=== PATIENT | female | born 1970 | race Caucasian/White ===

== ENCOUNTER 2019-11-13 13:49 | Emergency (ER) | payer OTHER, SELFPAY ==
[2019-11-13] MEDS ORDERED: HYDROCODONE/APAP 10/325 TAB ONE (14:59)
--- NOTE | 2019-11-13 15:12 | ER ---
Nurse's Notes [facility] Name: Kathleen Baldwin Age: 49 yrs Sex: Female : 1970 Arrival Date: 11/13/2019 Time: 13:56 Bed 3 Private MD: Diagnosis: Nondisplaced comminuted fracture of shaft of ulna, left arm-proximal;Other dislocation of left radial head Presentation: 11/12 14:22 Chief complaint: Patient states: Foot got caught on something while trying to get out jl7 of the car and I fell, reports dislocated left elbow. Coronavirus screen: Proceed with normal triage. Patient denies a cough. Patient denies shortness of breath or difficulty breathing. Patient denies measured and/or subjective temperature greater than 100.4F prior to today's visit. Patient denies travel on a cruise ship or to a country the [facility] currently lists as an affected area. Patient denies contact with known and/or suspected case of COVID-19. Ebola Screen: No symptoms or risks identified at this time. Initial Sepsis Screen: Does the patient meet any 2 criteria? No. Patient's initial sepsis screen is negative. Does the patient have a suspected source of infection? No. Patient's initial sepsis screen is negative. Risk Assessment: Do you want to hurt yourself or someone else? Patient reports no desire to harm self or others. Onset of symptoms was November 13, 2019. Care prior to arrival: None. 14:22 Method Of Arrival: Ambulatory jl7 14:22 Acuity: KYAW 4 jl7 15:30 Mechanism of Injury: Fall from standing position. Trauma event details: Injury occurred bp in the [facility], Injury occurred: at home. Injury occurred: November 13, 2019 Injury occurred at: 13:00. 15:30 Care prior to arrival: None. bp Triage Assessment: 14:25 General: Appears in no apparent distress. uncomfortable, Behavior is calm, cooperative, jl7 appropriate for age. Pain: Complains of pain in left elbow Pain currently is 10 out of 10 on a pain scale. 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 - Social history:: Smoking status: Patient reports the use of cigarette tobacco products, 3-4 cigarettes/day. - Immunization history: Last tetanus immunization: unknown. Screenin:30 Abuse screen: Denies threats or abuse. Denies injuries from another. Nutritional bp screening: No deficits noted. Tuberculosis screening: No symptoms or risk factors identified. 16:21 Fall Risk Fall in past 12 months (25 points). No secondary diagnosis (0 pts). IV access bp (20 points). Ambulatory Aid- None/Bed Rest/Nurse Assist (0 pts). Gait- Normal/Bed Rest/Wheelchair (0 pts) Mental Status- Oriented to own ability (0 pts). Total River Fall Scale indicates High Risk Score (45 or more points). Fall prevention measures have been instituted. Side Rails Up X 2 Placed Close to Nursing Station Frequent Obs/Assessments Occuring As available patient and family educated on Fall Prevention Program and Strategies. Primary Survey: 15:30 NO uncontrolled hemorrhage observed. A: The patient is alert. Airway: patent. bp Breathing/Chest: Respiratory pattern: regular, Respiratory effort: spontaneous, Breath sounds: clear, bilaterally. Circulation: Skin color: pink, Skin temperature: warm, dry. Disability Alert. Exposure/Environment: All clothing and personal items were removed. Forensic evidence collection is not deemed to be indicated at this time. Items placed in patient belonging bag. There is no evidence of uncontrolled external bleeding. Obvious injury(ies) are noted at this time: LEFT ELBOW DEFORMITY. 16:21 Reassessment Breathing/Chest Respiratory pattern Regular Respiratory effort Spontaneous bp Unlabored. Secondary Survey: 15:30 Musculoskeletal: Bony deformity noted of left elbow. bp Assessment: 15:30 General: Appears distressed, uncomfortable, Behavior is cooperative, appropriate for bp age, anxious. Pain: Complains of pain in left elbow. Neuro: Level of Consciousness is awake, alert, obeys commands, Oriented to person, place, time, situation, Appropriate for age. EENT: No deficits noted. Cardiovascular: No deficits noted. Respiratory: No deficits noted. GI: No signs and/or symptoms were reported involving the gastrointestinal system. : No signs and/or symptoms were reported regarding the genitourinary system. Derm: No deficits noted. Musculoskeletal: Bony deformity noted of left elbow. Injury Description: Deformity sustained to left elbow. 16:00 Reassessment: REPORT TO ENEDIAN CHICAS AT [facility]. TRANSPORT PENDING. bp 16:20 Reassessment: [facility] AT B/S FOR TRANSFER TO [facility]. bp Vital Signs: 14:22 BP 145 / 84; Pulse 62; Resp 20; Temp 97; Pulse Ox 99% ; Weight 73.94 kg; Height 5 ft. 6 jl7 in. (167.64 cm); Pain 10/10; 16:00 BP 137 / 79; Pulse 71; Resp 17; Temp 97; Pulse Ox 99% ; bp 14:22 Body Mass Index 26.31 (73.94 kg, 167.64 cm) jl7 [place] Coma Score: 15:30 Eye Response: spontaneous(4). Verbal Response: oriented(5). Motor Response: obeys bp commands(6). Total: 15. Trauma Score (Adult): 15:30 Eye Response: spontaneous(1); Verbal Response: oriented(1); Motor Response: obeys bp commands(2); Systolic BP: > 89 mm Hg(4); Respiratory Rate: 10 to 29 per min(4); Deepika Score: 15; Trauma Score: 12 ED Course: 13:56 Patient arrived in ED. mr 14:25 Triage completed. jl7 14:25 Arm band placed on right wrist. jl7 14:52 Eva Arrington FNP-C is [facility]. snw 14:52 Nikita Peters MD is Attending Physician. snw 15:05 Elbow Left 3 View XRAY In Process Unspecified. EDMS 15:10 Malvin Magallanes MD is Referral Physician. snw 15:30 Patient has correct armband on for positive identification. Bed in low position. Call bp light in reach. Side rails up X2. 15:30 Patient maintains SpO2 saturation greater than 95% on room air. Thermoregulation: warm bp blanket given to patient. 15:34 Ruben Siu, RN is Primary Nurse. bp 15:50 Inserted saline lock: 20 gauge in right hand, using aseptic technique. Blood collected. bp 16:19 No provider procedures requiring assistance completed. Patient admitted, IV remains in bp place. 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 Lot #: [id number]. } Route: IM; Site: right deltoid; 16:19 Follow up: Response: No adverse reaction bp 16:00 Drug: fentaNYL (PF) 50 mcg Route: IVP; Site: right hand; bp 16:19 Follow up: Response: Pain is decreased bp 16:00 Drug: NS 0.9% 1000 ml Route: IV; Rate: 125 ml/hr; Site: right hand; bp 16:11 Follow up: IV Status: Infusion continued upon transfer bp 16:18 Drug: fentaNYL (PF) 50 mcg Route: IVP; Site: right hand; bp 16:19 Follow up: Response: Pain is decreased bp Intake: 15:30 PO: 0ml; Total: 0ml. bp Output: 15:30 Urine: 0ml; Total: 0ml. bp Outcome: 15:12 Discharge ordered by MD. snw 15:37 ER care complete, transfer ordered by MD. snw 16:19 Transferred by ground EMS to [facility], Transfer form completed. bp 16:19 Condition: stable 16:19 Instructed on the need for transfer. 16:22 Patient's length of stay was not longer than 2 hours. bp 16:23 Patient left the ED. bp Signatures: Dispatcher [employer] EDMS Eva Arrington, MICHELLEC QUALITY MANAGER-Jhoan Vicky DoverSalome, RN RN jl7 Ruben Siu, RN RN bp Corrections: (The following items were deleted from the chart) 16:05 16:02 Inserted saline lock: 20 gauge in right hand, using aseptic technique. Blood bp collected. bp
--- NOTE | 2019-11-13 15:12 | EDPHYS ---
Physician Documentation [facility] Name: Kathleen Baldwin Age: 49 yrs Sex: Female : 1970 Arrival Date: 11/13/2019 Time: 13:56 Bed 3 Private MD: ED Physician Nikita Peters HPI: 11/12 15:31 This 49 yrs old Female presents to ER via Ambulatory with complaints of Fall snw Injury, Elbow Injury. 15:31 Details of fall: The patient fell from an upright position, getting out of car. Onset: snw The symptoms/episode began/occurred suddenly, just prior to arrival. Associated injuries: The patient sustained left elbow, decreased range of motion, obvious fracture, painful injury. Severity of symptoms: At their worst the symptoms were moderate, severe, in the emergency department the symptoms are unchanged. The patient has not experienced similar symptoms in the past. The patient has not recently seen a physician. pt with + sensation and pulses to left upper ext. 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 - Social history:: Smoking status: Patient reports the use of cigarette tobacco products, 3-4 cigarettes/day. - Immunization history: Last tetanus immunization: unknown. ROS: 15:33 Constitutional: Negative for fever, chills, and weight loss, Eyes: Negative for injury, snw pain, redness, and discharge, ENT: Negative for injury, pain, and discharge, Neck: Negative for injury, pain, and swelling, Cardiovascular: Negative for chest pain, palpitations, and edema, Respiratory: Negative for shortness of breath, cough, wheezing, and pleuritic chest pain, Abdomen/GI: Negative for abdominal pain, nausea, vomiting, diarrhea, and constipation, Back: Negative for injury and pain, : Negative for injury, bleeding, discharge, and swelling, Skin: Negative for injury, rash, and discoloration, Neuro: Negative for headache, weakness, numbness, tingling, and seizure, Psych: Negative for depression, anxiety, suicide ideation, homicidal ideation, and hallucinations. 15:33 MS/extremity: Positive for injury or acute deformity, decreased range of motion, pain, swelling, tenderness, of the left elbow. Exam: 15:33 Constitutional: This is a well developed, well nourished patient who is awake, alert, snw and in no acute distress. Head/Face: Normocephalic, atraumatic. Eyes: Pupils equal round and reactive to light, extra-ocular motions intact. Lids and lashes normal. Conjunctiva and sclera are non-icteric and not injected. Cornea within normal limits. Periorbital areas with no swelling, redness, or edema. ENT: Nares patent. No nasal discharge, no septal abnormalities noted. Tympanic membranes are normal and external auditory canals are clear. Oropharynx with no redness, swelling, or masses, exudates, or evidence of obstruction, uvula midline. Mucous membranes moist. Neck: Trachea midline, no thyromegaly or masses palpated, and no cervical lymphadenopathy. Supple, full range of motion without nuchal rigidity, or vertebral point tenderness. No Meningismus. Chest/axilla: Normal chest wall appearance and motion. Nontender with no deformity. No lesions are appreciated. Cardiovascular: Regular rate and rhythm with a normal S1 and S2. No gallops, murmurs, or rubs. Normal PMI, no JVD. No pulse deficits. Respiratory: Lungs have equal breath sounds bilaterally, clear to auscultation and percussion. No rales, rhonchi or wheezes noted. No increased work of breathing, no retractions or nasal flaring. Abdomen/GI: Soft, non-tender, with normal bowel sounds. No distension or tympany. No guarding or rebound. No evidence of tenderness throughout. Back: No spinal tenderness. No costovertebral tenderness. Full range of motion. MS/ Extremity: Pulses equal, no cyanosis. Neurovascular intact. Full, normal range of motion. except to left upper extremity. + edema, decreased ROM, tenderness, + sensation, NPO Neuro: Awake and alert, GCS 15, oriented to person, place, time, and situation. Cranial nerves II-XII grossly intact. Motor strength 5/5 in all extremities. Sensory grossly intact. Cerebellar exam normal. Normal gait. Psych: Awake, alert, with orientation to person, place and time. Behavior, mood, and affect are within normal limits. Vital Signs: 14:22 BP 145 / 84; Pulse 62; Resp 20; Temp 97; Pulse Ox 99% ; Weight 73.94 kg; Height 5 ft. 6 jl7 in. (167.64 cm); Pain 10/10; 16:00 BP 137 / 79; Pulse 71; Resp 17; Temp 97; Pulse Ox 99% ; bp 14:22 Body Mass Index 26.31 (73.94 kg, 167.64 cm) jl7 Deepika Coma Score: 15:30 Eye Response: spontaneous(4). Verbal Response: oriented(5). Motor Response: obeys bp commands(6). Total: 15. Trauma Score (Adult): 15:30 Eye Response: spontaneous(1); Verbal Response: oriented(1); Motor Response: obeys bp commands(2); Systolic BP: > 89 mm Hg(4); Respiratory Rate: 10 to 29 per min(4); Garner Score: 15; Trauma Score: 12 MDM: 14:53 Patient medically screened. snw 15:34 Data reviewed: vital signs, nurses notes. Data interpreted: Pulse oximetry: on room air snw is 99 %. Interpretation: normal. Counseling: I had a detailed discussion with the patient and/or guardian regarding: the historical points, exam findings, and any diagnostic results supporting the discharge/admit diagnosis, radiology results, the need to transfer to another facility, for higher level of care, [facility] does not immediately have the required specialist. Physician consultation: Malvin Magallanes MD was called at 15:00, was contacted at 15:20, regarding consult, patient's condition, need to evaluate the patient as soon as possible, after a discussion of the case, a recommendation for transfer for higher level of care is made. 11/12 15:30 Order name: CBC with Diff snw 11/12 15:30 Order name: TS snw 11/12 14:38 Order name: Elbow Left 3 View XRAY; Complete Time: 15:17 snw 11/12 15:30 Order name: Chem 7 snw 11/12 15:09 Order name: Sling; Complete Time: 15:09 snw 11/12 15:29 Order name: Misc. Order: attempt transfer to Trauma per Dr. 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 Lot #: [id number]. } Route: IM; Site: right deltoid; 16:19 Follow up: Response: No adverse reaction bp 16:00 Drug: fentaNYL (PF) 50 mcg Route: IVP; Site: right hand; bp 16:19 Follow up: Response: Pain is decreased bp 16:00 Drug: NS 0.9% 1000 ml Route: IV; Rate: 125 ml/hr; Site: right hand; bp 16:11 Follow up: IV Status: Infusion continued upon transfer bp 16:18 Drug: fentaNYL (PF) 50 mcg Route: IVP; Site: right hand; bp 16:19 Follow up: Response: Pain is decreased bp Disposition: 11/13 08:44 Co-signature as Attending Physician, Nikita Peters MD I agree with the assessment and kdr plan of care. Disposition: 11/13/19 15:37 Transfer ordered to [facility]. Diagnosis are Nondisplaced comminuted fracture of shaft of ulna, left arm - proximal, Other dislocation of left radial head. - Reason for transfer: Higher level of care. - Accepting physician is Dr. Hollingsworth. - Condition is Stable. - Problem is new. - Symptoms are unchanged. Signatures: Dispatcher [employer] EDWY Nikita Peters MD MD kdr Eva Arrington, BOBBIN FIXER-C BOBBIN FIXER-Maria Elenaw Salome Guan RN RN jl7 Ruben Siu RN RN bp Corrections: (The following items were deleted from the chart) 11/12 15:14 15:12 11/13/2019 15:12 Discharged to Home. Impression: Nondisplaced fracture of neck of snw left radius - comminuted. Condition is Stable. Forms are Medication Reconciliation Form, Thank You Letter, Antibiotic Education, Prescription Opioid Use. Follow up: Emergency Department; When: As needed; Reason: Worsening of condition. Follow up: Private Physician; When: 2 - 3 days; Reason: Recheck today's complaints, Continuance of care, Re-evaluation by your physician. Follow up: Dr. Malvin Magallanes; When: 1 - 2 days; Reason: Recheck today's complaints, Continuance of care. snw 15:18 15:14 11/13/2019 15:12 Discharged to Home. Impression: Nondisplaced comminuted fracture snw of shaft of ulna, left arm. Condition is Stable. Discharge Instructions: RICE for Routine Care of Injuries, Ulnar Fracture. Forms are Medication Reconciliation Form, Thank You Letter, Antibiotic Education, Prescription Opioid Use. Follow up: Emergency Department; When: As needed; Reason: Worsening of condition. Follow up: Private Physician; When: 2 - 3 days; Reason: Recheck today's complaints, Continuance of care, Re-evaluation by your physician. Follow up: Dr. Malvin Magallanes; When: 1 - 2 days; Reason: Recheck today's complaints, Continuance of care. snw 16:18 15:09 Splint - Elbow - Posterior ordered. snw bp 16:23 15:37 11/13/2019 15:37 Transfer ordered to [facility]. Diagnosis is bp Nondisplaced comminuted fracture of shaft of ulna, left arm - proximal; Other dislocation of left radial head. Reason for transfer: Higher level of care. Accepting physician is Dr. Hollingsworth. Condition is Stable. Problem is new. Symptoms are unchanged. snw
--- NOTE | 2019-11-13 15:14 | RAD REPORT ---
EXAM DESCRIPTION: RAD - Elbow Left 3 View - 11/13/2019 3:04 pm CLINICAL HISTORY: Pain;Deformity COMPARISON: Chest Single View dated 04/21/2019; Chest Single View dated 04/16/2019; Chest Single View dated 03/29/2019No comparisons FINDINGS: Comminuted fracture is present involving the proximal ulna. Radial head dislocation is pre sent. Moderate soft tissue swelling evident.
[2019-11-13] MEDS ORDERED: NA CHLORIDE 0.9% 1,000 ML ONE (15:58)
[2019-11-13] MEDS ORDERED: FENTANYL CITR 100 MCG/2 ML ONE (15:58)
[2019-11-13] MEDS ORDERED: TETANUS & DIPHTHERIA TOX,ADULT 0.5 ML VIAL ONE (15:59)
[2019-11-13 16:09] LABS: RBC Red Blood Cell Count 4.55 M/uL (3.86-4.86)
[2019-11-13 16:10] LABS: Absolute Lymphocytes (CBC) 1.2 K/uL (0.7-4.9); Basophils % 0.3 % (0-1.3); Hematocrit 44.2 % (36.0-45.0); Lymphocytes % 6.5 % (15.3-44.8); MPV 9.8 fL (7.6-11.3)
[2019-11-13 16:24] LABS: Potassium 3.9 mmol/L (3.5-5.1)
[2019-11-13 16:48] VITALS: BP 145/84; TEMP 97; O2SAT 99
== END 2019-11-13 16:23 | disposition short-term general hospital (02) ==
LOC: ER 13:49
DX: S52.255A Nondisplaced comminuted fracture of shaft of ulna, left arm, initial encounter for closed fracture (principal); S53.005A Unspecified dislocation of left radial head, initial encounter; W17.89XA Other fall from one level to another, initial encounter; Y93.89 Activity, other specified; Y92.9 Unspecified place or not applicable; F17.210 Nicotine dependence, cigarettes, uncomplicated
CPT/HCPCS: 36415; 80048; 85025; 86850; 86900; 86901; 90471; 90714; 96374; 99285; G0390; J3010; J7030